=== PATIENT | female | born 1950 | race Caucasian/White ===

== ENCOUNTER 2019-03-24 11:41 | Emergency (ER) | payer OTHER ==
[~2019-03-24] VITALS: Ht 154.9 cm; Wt 61.2 kg
[2019-03-24] MEDS ORDERED: METFORMIN HCL500 M1 PO (11:48)
[2019-03-24] MEDS ORDERED: LOSARTAN POTAS100 MG PO (11:48)
[2019-03-24] MEDS ORDERED: LEVO-T50 MCG PO (11:49)
[2019-03-24] MEDS ORDERED: CYCLOBENZAPRINE5 MG PO (12:31)
[2019-03-24] MEDS ORDERED: LIDOCAINE PAIN1 EACH TRANSDERM (12:31)
[2019-03-24 12:55] VITALS: BP 158/73
== END 2019-03-24 12:56 | disposition home or self-care (01) ==
LOC: ER 11:41
DX: M43.6 Torticollis (principal); M62.838 Other muscle spasm; E03.9 Hypothyroidism, unspecified; E11.9 Type 2 diabetes mellitus without complications; I10 Essential (primary) hypertension; Z88.5 Allergy status to narcotic agent; Z79.899 Other long term (current) drug therapy; X50.1XXA Overexertion from prolonged static or awkward postures, initial encounter; Y93.89 Activity, other specified; Y92.89 Other specified places as the place of occurrence of the external cause; Y99.9 Unspecified external cause status

== ENCOUNTER 2019-12-09 12:22 | Emergency (ER) | payer OTHER ==
[~2019-12-09] VITALS: Ht 154.9 cm; Wt 63.5 kg
[~2019-12-09 12:22] MED LIST: CYCLOBENZAPRINE5 MG PO; LEVO-T50 MCG PO; LIDOCAINE PAIN1 EACH TRANSDERM; LOSARTAN POTAS100 MG PO; METFORMIN HCL500 M1 PO
[2019-12-09] MEDS ORDERED: EPIPEN0.3 MG/0.1 IM (13:23)
[2019-12-09 13:54] VITALS: BP 158/83
== END 2019-12-09 13:55 | disposition home or self-care (01) ==
LOC: ER 12:22
DX: R22.31 Localized swelling, mass and lump, right upper limb (principal); T63.441A Toxic effect of venom of bees, accidental (unintentional), initial encounter; I10 Essential (primary) hypertension; E03.9 Hypothyroidism, unspecified; E11.9 Type 2 diabetes mellitus without complications; E78.5 Hyperlipidemia, unspecified; Z79.899 Other long term (current) drug therapy; Z88.5 Allergy status to narcotic agent; Y92.89 Other specified places as the place of occurrence of the external cause